=== PATIENT | male | born 1995 | race Caucasian/White ===

== ENCOUNTER 2023-03-01 02:31 | Emergency (ER) | payer BC ==
[2023-03-01 02:41] VITALS: BP 128/96; PULSE 56; RESP 18; TEMP 97.8; BMI 24.3
[2023-03-01] MEDS ORDERED: ONDANSETRON 4 MG/2 ML VIAL ONE ×2 (02:55→03:37)
[2023-03-01] MEDS ORDERED: SODIUM CHLORIDE 1,000 ML IV ONE ×2 (03:28→04:59)
[2023-03-01] MEDS ORDERED: ONDANSETRON 4 MG/2 ML VIAL IVPB ONE (03:28)
[2023-03-01] MEDS ORDERED: ACETAMINOPHEN INJECTION 100 ML IVPB ONE (03:37)
[2023-03-01] MEDS ORDERED: ACETAMINOPHEN 1000 MG/100 ML BAG IVPB ONE (03:37)
[2023-03-01 04:27] LABS: HEMATOCRIT 47.8 % (35.4-49); HEMOGLOBIN 16.4 GM/dL (11.7-16.9); MCH 30.1 pg (25.7-33.7); MCHC 34.3 g/dl (32.0-35.9); MEAN CELL VOLUME 87.9 fl (80-96); MEAN PLT VOLUME 9.4 fl (7.5-11.1); PLATELET COUNT 260 10^3/uL (134-434); RBC 5.44 M/mm3 (4.00-5.60); RDW 13.3 % (11.9-15.9); WHITE BLOOD COUNT 13.3 K/mm3 (4.0-10.0)
[2023-03-01 04:50] LABS: CALCIUM 9.8 mg/dL (8.5-10.1)
[2023-03-01 04:51] LABS: BLOOD UREA NITROGEN 21.4 mg/dL (7-18)
[2023-03-01 04:54] LABS: CREATININE 1.1 mg/dL (0.55-1.3)
[2023-03-01 04:55] LABS: BILIRUBIN,TOTAL 2.9 mg/dL (0.2-1)
[2023-03-01 04:56] LABS: TOT PROT 8.1 g/dl (6.4-8.2)
[2023-03-01] MEDS ORDERED: morphine SULFATE 4 MG/ML VIAL ONE (06:12)
[2023-03-01] MEDS ORDERED: morphine CARPU-JECT 2 MG/1 ML DISP.SYRIN IVPUSH ONE (06:12)
[2023-03-01] MEDS ORDERED: KETOROLAC TROMETHAMINE 30 MG/1 ML VIAL IVPUSH ONE (06:20)
[2023-03-01] MEDS ORDERED: KETOROLAC TROMETHAMINE 30 MG/1 ML VIAL ONE (06:20)
== END 2023-03-01 07:15 | disposition home or self-care (01) ==
LOC: FER 02:31
PROC: 3E033NZ Introduction of Analgesics, Hypnotics, Sedatives into Peripheral Vein, Percutaneous Approach (ICD-10-PCS; principal; 2023-03-01)
PROC: 3E0333Z Introduction of Anti-inflammatory into Peripheral Vein, Percutaneous Approach (ICD-10-PCS; 2023-03-01)
PROC: 3E033GC Introduction of Other Therapeutic Substance into Peripheral Vein, Percutaneous Approach (ICD-10-PCS; 2023-03-01)
PROC: 3E033GC Introduction of Other Therapeutic Substance into Peripheral Vein, Percutaneous Approach (ICD-10-PCS; 2023-03-01)
PROC: 3E0337Z Introduction of Electrolytic and Water Balance Substance into Peripheral Vein, Percutaneous Approach (ICD-10-PCS; 2023-03-01)
PROC: 3E0337Z Introduction of Electrolytic and Water Balance Substance into Peripheral Vein, Percutaneous Approach (ICD-10-PCS; 2023-03-01)
DX: N23 Unspecified renal colic (principal)
CPT/HCPCS: 36415; 74177-TC; 80053; 85027; 99285-25; Q9967